=== PATIENT | male | born 1995 | race African-American/Black ===

== ENCOUNTER 2020-10-13 17:26 | Emergency (ER) | payer OTHER ==
[2020-10-13 17:41] VITALS: BP 120/50; PULSE 65; TEMP 98.6
[2020-10-13] MEDS ORDERED: ACETAMINOPHEN 500 MG TABLET (FP) PO ONE (18:20)
[2020-10-13] MEDS ORDERED: ACETAMINOPHEN 500 MG TABLET (FP) ONE (18:29)
[2020-10-13 18:32] LABS: BASO % 0.4 % (0-2.0); EOS % 4.6 % (0-4.5); HEMATOCRIT 38.5 % (35.4-49); HEMOGLOBIN 12.5 GM/dl (11.7-16.9); LYMPH % 36.7 % (8-40); MCH 27.1 pg (25.7-33.7); MCHC 32.5 g/dl (32.0-35.9); MEAN CELL VOLUME 83.4 fl (80-96); MEAN PLT VOLUME 6.7 fl (7.5-11.1); MONO % 9.8 % (3.8-10.2); NEUT % 48.5 % (42.8-82.8); PLATELET COUNT 270 K/MM3 (134-434); RBC 4.61 M/mm3 (4.00-5.60); RDW 12.7 % (11.9-15.9); WHITE BLOOD COUNT 6.6 K/mm3 (4.0-10.8)
[2020-10-13] MEDS ORDERED: SODIUM CHLORIDE 0.9% 1000 ML INFUS.BAG IV ONE (18:59)
[2020-10-13 19:13] LABS: ALBUMIN 4.1 g/dl (3.4-5.0); BILIRUBIN,TOTAL 0.4 mg/dl (0.2-1); CALCIUM 8.8 mg/dl (8.5-10); CREATININE 0.8 mg/dl (0.55-1.3); TOT PROT 6.9 g/dl (6.4-8.2)
== END 2020-10-13 19:41 | disposition home or self-care (01) ==
LOC: FER 17:26
DX: R11.2 Nausea with vomiting, unspecified (principal); R10.9 Unspecified abdominal pain
CPT/HCPCS: 36415; 71046-TC-FY; 74176-TC; 76705-TC; 76775-TC; 80053; 81003; 85025; 99284-25